=== PATIENT | female | born 1995 | race Two or more races ===

== ENCOUNTER 2020-11-10 13:58 | Emergency (ER) | payer BC, MEDICAID ==
[~2020-11-10 13:58] MED LIST: ADV50100 IH; CLA10T PO; DIPH-423 PO; IBUP-1984 PO; METO-292 PO; NAPR-232 PO; NO HOME MEDS; PRED20TA PO
== END 2020-11-10 20:02 | disposition left against medical advice (07) ==
LOC: ER 13:59
DX: S61.019A Laceration without foreign body of unspecified thumb without damage to nail, initial encounter (principal); Z53.21 Procedure and treatment not carried out due to patient leaving prior to being seen by health care provider; X58.XXXA Exposure to other specified factors, initial encounter; Y93.9 Activity, unspecified; Y92.9 Unspecified place or not applicable; Y99.9 Unspecified external cause status